=== PATIENT | female | born 1945 | race Caucasian/White ===

== ENCOUNTER 2016-12-26 17:05 | Inpatient (IN) ==
[2016-12-26] MEDS ORDERED: cefTRIAXone 1,000 MG in SODIUM CHLORIDE 0.9% 100 ML IV STA (17:26)
[2016-12-26] MEDS ORDERED: ONDANSETRON 4 MG/2 ML VIAL IV STA ×2 (17:26→18:43)
[2016-12-26] MEDS ORDERED: AZITHROMYCIN INJ 500 MG in SODIUM CHLORIDE 0.9% 250 ML IV STA (17:26)
[2016-12-26] MEDS ORDERED: methylPREDNISolone SOD SUC 125 MG/2 ML VIAL IV STA (17:26)
--- NOTE | 2016-12-26 17:30 | Emergency Department Note ---
Arrival - Arrival Chief Complaint: Shortness of Breath Stated Complaint: cant hardly breathe/aching/fever ED Nursing Triage Note: Pt c/o increased cough and SOB, fever, body aches, and chills since this am. Pt on home O2 at triage. Mode of Arrival: Ambulatory Limitations: No Limitations Source: Patient Time Seen by Provider: 12/26/16 17:26 - History of Present Illness HPI Narrative: This 71-year-old white female long-standing COPD patient on home oxygen presents with a history of several days of marked escalation in dyspnea on exertion and at rest with nighttime wheeze, increased cough, chest wall pain, and low-grade fever. She denies any significant purulence, sinus symptoms, or pedal edema. She has remained quite compliant with her medication and currently is medically stable other than her dyspnea. Onset (ago): day(s) (Patient presents with several days of progressive symptoms) Allergies/Adverse Reactions: Allergies Allergy/AdvReac Type Severity Reaction Status Date / Time No Known Allergies Allergy Verified 12/26/16 17:11 Home Medications: Home Medications Medication Instructions Recorded Confirmed Type Albuterol Inhaler [Proventil 2 puff INH Q4H PRN 12/26/16 12/26/16 History Inhaler] Albuterol/Ipratropium Neb [Duoneb] 3 ml RESP TX RT Q6H PRN 12/26/16 12/26/16 History Azithromycin Tab [Zithromax Tab] 250 mg PO MOWEFR 12/26/16 12/26/16 History dilTIAZem HCl [Cartia XT] 180 mg PO QAM 12/26/16 12/26/16 History Review of System - Review of System 12 point system: reviewed and no additional remarkable complaints except as stated - Review of System Constitutional: Present: as per HPI Respiratory: Present: as per HPI Cardiovascular: Present: as per HPI Medical,Surgical,& Family Hx - Medical History Cardio: History of: Hypertension Endocrine: History of: Diabetes Mellitus (NIDDM) Respiratory: History of: COPD - Social History Smoking Status: Never smoker Exam Physical Examination: GENERAL: Chronically ill fragile appearing white female. HEENT: Normocephalic. No trauma. Moist mucous membranes. EOMI. PERRLA. ENT NML NECK: Supple. No adenopathy. CARDIAC: Regular. No murmurs. Heart rate 83 CHEST: Scattered anterior expiratory wheeze. No respiratory distress. O2 sat 97%. Tender sternum and bilateral anterior axillary lines with palpation ABDOMEN: Soft. Nontender. Active bowel sounds. EXTREMITIES: No trauma. Normal ROM. No pedal edema. SKIN: No diaphoresis. No rash. NEURO: Alert. Neuro intact no focal deficits. Vital Signs: Vital Signs Temperature 98.7 F 12/26/16 17:33 Pulse Rate 83 12/26/16 17:33 Respiratory Rate 21 12/26/16 17:33 Blood Pressure 180/115 12/26/16 17:33 O2 Sat by Pulse Oximetry 99 12/26/16 17:30 Course - Reevaluation(s) Reevaluation #1: Discussed with patient the need for hospitalization given her elevated BNP, resting tachycardia, chronic hypoxia, and GI intolerance of bronchodilators. - Consultations Consultation #1: Discussed with hospitalist service admission for further evaluation and treatment Results - Labs CBC & BMP: 12/26/16 17:52 12/26/16 17:52 - Impressions EKG: Sinus rhythm at 96 with occasional PAC. Evidence of LVH with nonspecific ST changes. No acute injury pattern noted. - Diagnostic Findings Procedure: Chest x-ray: image reviewed by me, report reviewed by me (Stable appearance of COPD with chronic scarring and interval improvement of infiltrate noted previously.) Disposition Clinical Impression: O2 dependent COPD exacerbation, Congestive failure Case discussed with: patient, patient's family Disposition: Still a Patient Condition: Guarded Time of Disposition: 19:44
[2016-12-26] MEDS ORDERED: hydrALAZINE 20 MG/1 ML VIAL IV STA (17:31)
--- NOTE | 2016-12-26 17:47 | XRay Report ---
XR chest 1V portable Indication: Shortness of breath Comparison: Chest x-ray 03/11/2014 Technique: Portable AP chest was performed. Findings: Scarring and parenchymal distortion within the upper chest bilaterally has changed little since comparison study. Heart size is borderline to minimally enlarged. The lower lungs are clear. Bones and soft tissues appear stable. Impression: 1. Interval clearing of previously demonstrated reticular interstitial markings in the mid to lower chest may reflect improvement in infection or edema. Diffuse parenchymal scarring and distortion of the upper lung parenchyma remains present with little suggested change. 12/26/2016 5:44 PM PROCEDURE INTERPRETED AT [facility] DEPARTMENT OF RADIOLOGY Final Report Signed by: Dr. Rick Muñiz
[2016-12-26] MEDS ORDERED: hydrALAZINE 20 MG/1 ML VIAL ONE (17:51)
[2016-12-26] MEDS ORDERED: AZITHROMYCIN 500 MG VIAL IV ONE (17:51)
[2016-12-26] MEDS ORDERED: ONDANSETRON 4 MG/2 ML VIAL ONE ×2 (17:51→18:53)
[2016-12-26] MEDS ORDERED: methylPREDNISolone SOD SUC 125 MG/2 ML VIAL ONE (17:51)
[2016-12-26] MEDS ORDERED: cefTRIAXone 1,000 MG VIAL ONE (17:51)
[2016-12-26 18:08] LABS: Basophils % 0.3 % (0.0-0.8); Eosinophils # 0.4 10*3/uL (0.0-0.87); Eosinophils % 5.9 % (0.00-10.9); Hematocrit 36.1 VOL% (35.7-47.0); Hemoglobin 12.3 GM/DL (12.0-16.0); Immature Granulocytes % 0.3 %; Immature Granulocytes Absolute 0.02 #; Lymphocytes # 1.8 10*3/uL (1.4-4.0); Lymphocytes % 26.2 % (21.3-54.2); Mean Corpuscular HGB Conc 34.1 GM/DL (32-36); Mean Corpuscular Hemoglobin 31 PG (27-34); Mean Corpuscular Volume 90.3 FL (87-102); Mean Platelet Volume 10.8 FL (9.6-12.0); Monocytes # 0.8 10*3/uL (0.11-0.8); Monocytes % 11.1 % (1.7-12.7); Neutrophils # 3.9 10*3/uL (1.4-7.4); Neutrophils % 56.2 % (38.7-73.9); Platelet Count 226 T/CUMM (130-400); Red Cell Distribution Width 12.6 % (9.3-17.3)
[2016-12-26] MEDS: ALBUTEROL 2.5 MG/3 ML NEB RESP TX STA ×2 (18:10→19:05)
[2016-12-26 18:20] LABS: PT Patient Result 10.3 SECS; Partial Thromboplastin Time 32.1 SECS (0-40)
--- NOTE | 2016-12-26 18:20 | EKG Report ---
Stationary ECG Study [facility] ER Test Date: 12/26/2016 6:17:10 PM Pat Name: JAMES MIRANDA Department: Room: Gender: F Manufacturing Director: : 1945 Requested by: Steve Sheikh Order Number: [id number] Reading MD: LALITA APARICIO Intervals [place] Rate: 96 P: 78 IA: 130 QRS: 67 QRSD: 95 T: 68 QT: 346 QTc: 400 Interpretive Statements SINUS RHYTHM WITH OCCASIONAL SUPRAVENTRICULAR PREMATURE COMPLEXES MINIMAL VOLTAGE CRITERIA FOR LVH, CONSIDER NORMAL VARIANT Electronically Signed On 12-28-16 15:51:37 CDT by LALITA APARICIO [email or web address]
[2016-12-26 18:35] LABS: Alanine Aminotransferase 11 U/L (13-56); Albumin 3.6 G/DL (3.4-5.0); Alkaline Phosphatase 104 U/L (45-117); Aspartate Amino Transferase 16 U/L (0-37); Bilirubin,Total < 0.39 MG/DL (0.2-1.0); Blood Urea Nitrogen 25 MG/DL (7-18); Calcium 9.5 MG/DL (8.5-10.1); Glucose 97 MG/DL (74-106); Osmolality,Calculated 282.4 MOS/KG (273-304); Sodium 140 MMOL/L (136-145); Total Protein 7.8 G/DL (6.4-8.3); Troponin I Only < 0.015 NG/ML (0.00-0.045)
[2016-12-26 18:38] LABS: Apearance,Urine CLEAR (Clear); Bilirubin,Urine Negative (Negative); Blood, Urine Negative (Negative); Glucose,Urine (UA) Negative (Negative); Ketones,Urine Negative (Negative); Nitrite,Urine Negative (Negative); Protein,Urine Negative; RBC,Urine 10 /HPF (0-4); Squamous Epithelial Cell,Urine Occasional /HPF (0-10); Urine Color Straw (Yellow); Urine Urobilinogen < 2.0 EU/DL (0.2-1.0); WBC,Urine 1 /HPF (0-6)
[2016-12-26] MEDS ORDERED: METOCLOPRAMIDE 10 MG/2 ML VIAL IV STA (18:43)
[2016-12-26] MEDS ORDERED: ALBUTEROL 2.5 MG/3 ML NEB RESP TX STA (18:50)
[2016-12-26] MEDS: ALBUTEROL 2.5 MG/3 ML NEB RESP TX SCH ×2 (18:52→19:05)
[2016-12-26] MEDS ORDERED: METOCLOPRAMIDE 10 MG/2 ML VIAL ONE (18:53)
[2016-12-26] MEDS ORDERED: ALBUTEROL/IPRATROPIUM 3 ML NEB RESP TX PRN (20:00)
--- NOTE | 2016-12-26 20:11 | Hospitalist History & Physical ---
Assessment and Plan (1) Respiratory failure with hypoxia and hypercapnia Status: Acute Assessment and plan: The patient is admitted the hospital for treatment of worsening respiratory failure. The patient's illness is characterized as acute on chronic respiratory failure due to pulmonary fibrosis. The patient will be treated with IV antibiotic, moderate dose IV steroid, and beta agonist nebulized breathing therapy. We will obtain pulmonary consultation in the morning. I counseled the patient concerning CODE STATUS. The patient is her own decision maker and wishes to be full code. Current Visit: Yes (2) Pulmonary fibrosis Status: Acute Current Visit: Yes History of Present Illness Chief complaint: Shortness of breath and reduced exercise capacity History of present illness: Ms. Velazquez is a 71 year old female formally a patient of Dr. Cyndie Oglesby and last saw Dr. Beach one year ago. The patient was last hospitalized about 3 years ago and required recovery at [facility] after an episode of respiratory failure. Dr. Oglesby's record labeled her as pulmonary fibrosis at that time. The patient has been living with her son who cares for her each day. She has limited exercise capacity and walks about 25 feet at a time. The patient's son accompanies her and gives additional history. He states that she avoids eating because she coughs after eating. He states that the patient's previous exercise capacity has been limited to about 5 -10 feet in the last week. Patient and son deny fever, chills, dysuria, or hematemesis. The patient had prolonged nebulizer treatment at the time of treatment in the emergency room and that caused her to have a vomiting episode. The patient's symptoms are moderate to severe, continuous, and worsening. I screened the patient for tobacco use and found that she was a never smoker. I gave her 4 minutes tobacco avoidance education. Home Medications Medication Instructions Recorded Confirmed Type Albuterol Inhaler [Proventil 2 puff INH Q4H PRN 12/26/16 12/26/16 History Inhaler] Albuterol/Ipratropium Neb [Duoneb] 3 ml RESP TX RT Q6H PRN 12/26/16 12/26/16 History Azithromycin Tab [Zithromax Tab] 250 mg PO MOWEFR 12/26/16 12/26/16 History dilTIAZem HCl [Cartia XT] 180 mg PO QAM 12/26/16 12/26/16 History Allergies Allergy/AdvReac Type Severity Reaction Status Date / Time No Known Allergies Allergy Verified 12/26/16 17:11 Medical,Surgical,& Family Hx - Medical History Cardio: History of: Hypertension Endocrine: History of: Diabetes Mellitus (NIDDM) Respiratory: History of: COPD - Family History Family History: Reports;: Family Hypertension - Social History Smoking Status: Never smoker Marital Status: Lives With:: Children Functional capacity: uses cane/walker 12 point system: reviewed and no additional remarkable complaints except as stated Exam - Constitutional Vitals: Period Temp Pulse Resp BP Sys/Rose Pulse Ox Last 24 Hr 98.7 F-98.7 F 83-83 21-24 180-180/115-115 97-99 Exam: Constitutional System: Mild distress while laying very still. No tremulousness. The patient is malnourished with reduced muscle bulk Head: Normocephalic, atraumatic. Ears, Nose and Throat System: No evidence of Otitis or Mastoiditis. No epistaxis or discharge Eyes System: Pupils equal, round, and reactive. Extraocular muscles intact. Neck: Supple, without adenopathy, No jugular venous distention. No thyromegaly , neck mass, or prior surgery apparent. Respiratory System: Chest severe air trapping with reduced lung sounds right upper lobe to auscultation. Cardiovascular System: Heart with regular rate and rhythm and frequent ectopy. No murmur. GI System: Abdomen soft, nontender. Hypo-active bowel sounds present. Musculoskeletal System: limbs with no pedal edema. Full distal pulses. Neurological System: No discernable sensory deficit. No aphasia Psychiatric System: Conversation is rational Results - Labs CBC & BMP: 12/26/16 17:52 12/26/16 17:52 Lab Results: I have reviewed the past 24 hour labs
[2016-12-26] MEDS ORDERED: ONDANSETRON 4 MG/2 ML VIAL IV PRN (21:28)
[2016-12-26] MEDS ORDERED: ACETAMINOPHEN 325 MG TABLET PO PRN (21:28)
[2016-12-26] MEDS ORDERED: SODIUM CHLORIDE 0.9% 1,000 ML IV SCH (21:28)
[2016-12-26] MEDS ORDERED: ZALEPLON 5 MG CAPSULE PO PRN (21:28)
[2016-12-26] MEDS ORDERED: ENOXAPARIN 30 MG/0.3 ML SYRINGE SUBCUT SCH (21:28)
[2016-12-26] MEDS: CEFUROXIME INJ 750 MG in SODIUM CHLORIDE 0.9% 100 ML IV SCH (22:53)
[2016-12-27] MEDS: ALBUTEROL 0.63 MG/3 ML NEB RESP TX SCH ×2 (00:39→07:10)
[2016-12-27] MEDS: methylPREDNISolone SOD SUC 40 MG/1 ML VIAL IV SCH ×2 (01:50→09:04)
[2016-12-27 06:36] LABS: Basophils % 0.2 % (0.0-0.8); Hematocrit 34.4 VOL% (35.7-47.0); Hemoglobin 11.6 GM/DL (12.0-16.0); Immature Granulocytes % 0.4 %; Immature Granulocytes Absolute 0.02 #; Lymphocytes # 0.5 10*3/uL (1.4-4.0); Lymphocytes % 11.3 % (21.3-54.2); Mean Corpuscular HGB Conc 33.7 GM/DL (32-36); Mean Corpuscular Hemoglobin 31 PG (27-34); Mean Corpuscular Volume 90.5 FL (87-102); Monocytes # 0.1 10*3/uL (0.11-0.8); Neutrophils # 4.2 10*3/uL (1.4-7.4); Neutrophils % 87.1 % (38.7-73.9); Platelet Count 220 T/CUMM (130-400); Red Cell Distribution Width 12.7 % (9.3-17.3); White Blood Count 4.8 T/CUMM (4-12)
[2016-12-27 06:58] LABS: Osmolality,Calculated 287.1 MOS/KG (273-304); Potassium 4.4 MMOL/L (3.5-5.1)
[2016-12-27] MEDS: CEFUROXIME INJ 750 MG in SODIUM CHLORIDE 0.9% 100 ML IV SCH (07:15)
[2016-12-27 08:01] LABS: Band Neutrophils 1 % (0-10); Lymphocytes 11 % (20-55); Platelet Estimate Normal; Segmented Neutrophils 88 % (50-85); Total Cells Counted 100
[2016-12-27] MEDS ORDERED: PANTOPRAZOLE 40 MG TABLET PO SCH (09:00)
[2016-12-27] MEDS ORDERED: DILTIAZEM CD 180 MG CAPSULE PO SCH (09:00)
--- NOTE | 2016-12-27 11:04 | Discharge Summary ---
Hospital Course - Hospital Course Hospital Course: Discharge diagnosis: 1. Pulmonary fibrosis 2. Chronic respiratory failure on home oxygen. The patient presented to the hospital for evaluation of dyspnea. She says that she feels better following some adjustment of her bronchodilators. She is on oxygen at home at 2 L/min. She says that she is back to baseline. She has been up and about in the room, and is able to get to the bathroom without any assistance. She has requested discharge home. Medication reconciliation has been performed. Regular diet. Activity as tolerated. Follow-up with local physician. Discharge Plan - Discharge Data Disposition: Disch To Home/Self Care Condition at Discharge: Stable Discharge Diet: advance to your usual diet Activity: resume usual activities as tolerated Hygiene: no restrictions Weight Bearing at Discharge: full weight bearing - Discharge Medications Continue dilTIAZem HCl [Cartia XT] 180 mg PO QAM Azithromycin Tab [Zithromax Tab] 250 mg PO MOWEFR Albuterol/Ipratropium Neb [Duoneb] 3 ml RESP TX RT Q6H PRN PRN Reason: Shortness Of Breath/Wheezing Albuterol Inhaler [Proventil Inhaler] 2 puff INH Q4H PRN PRN Reason: Shortness Of Breath/Wheezing - Follow Up or Referral - Forms/Instructions Exam - Constitutional Vitals: Period Temp Pulse Resp BP Sys/Rose Pulse Ox Last 24 Hr 97.1 F-98.7 F 65-103 16-24 122-180/65-115 95-100 Vital signs are noted above. Heart is regular with distant tones. She has a few rales in the chest, and some decreased breath sounds in the right hemithorax. I suspect this is her baseline. She does not have any edema. Discharge Results Procedures and tests throughout hospitalization: Pending Orders 12/26/16 18:23 Blood Culture Stat Labs on day of discharge: Labs from last 24 hours 12/27/16 12/27/16 12/26/16 05:33 05:33 18:11 WBC 4.8 D RBC 3.80 Hgb 11.6 L Hct 34.4 L MCV 90.5 MCH 31 MCHC 33.7 RDW 12.7 Plt Count 220 MPV 11.0 Neut % (Auto) 87.1 H Lymph % (Auto) 11.3 L [place] % (Auto) 1.0 L Eos % (Auto) 0.0 Baso % (Auto) 0.2 Neut # (Auto) 4.2 Lymph # (Auto) 0.5 L [place] # (Auto) 0.1 L Eos # (Auto) 0.0 Baso # (Auto) 0.0 Total Counted 100 Immature Gran % 0.4 Nucleated RBC % 0.0 Immature Gran # 0.02 Segmented Neutrophils 88 H Band Neutrophils 1 Lymphocytes 11 L Nucleated RBCs # 0.00 Platelet Estimate Normal Immature Plt Fraction 0.0 INR PT Patient/Control Mix Circ Anticoag PTT Sodium 142 Potassium 4.4 Chloride 108 H Carbon Dioxide 28 Anion Gap 10.4 BUN 22 H Creatinine 1.40 H GFR Calculation 29 BUN/Creatinine Ratio 15.00 Glucose 141 H Calculated Osmolality 287.1 Calcium 9.0 Total Bilirubin AST ALT Alkaline Phosphatase Total Creatine Kinase CK-MB (CK-2) Troponin I B-Natriuretic Peptide Total Protein Albumin Globulin Albumin/Globulin Ratio Urine Color Straw Urine Appearance Clear Urine pH 6.0 Ur Specific [place] 1.010 Urine Protein Negative Urine Glucose (UA) Negative Urine Ketones Negative Urine Blood Negative Urine Nitrate Negative Urine Bilirubin Negative Urine Urobilinogen < 2.0 H Urine Leukocytes Negative Urine RBC 10 Urine WBC 1 Ur Squamous Epith Cells Occasional Ur Culture Indicated? Not indicated 12/26/16 12/26/16 12/26/16 17:52 17:52 17:52 WBC RBC Hgb Hct MCV MCH MCHC RDW Plt Count MPV Neut % (Auto) Lymph % (Auto) [place] % (Auto) Eos % (Auto) Baso % (Auto) Neut # (Auto) Lymph # (Auto) [place] # (Auto) Eos # (Auto) Baso # (Auto) Total Counted Immature Gran % Nucleated RBC % Immature Gran # Segmented Neutrophils Band Neutrophils Lymphocytes Nucleated RBCs # Platelet Estimate Immature Plt Fraction INR 1.0 PT Patient/Control Mix 10.3 Circ Anticoag PTT 32.1 Sodium 140 Potassium 4.0 Chloride 105 Carbon Dioxide 27 Anion Gap 12.0 BUN 25 H Creatinine 1.50 H GFR Calculation 26 BUN/Creatinine Ratio 16.00 Glucose 97 Calculated Osmolality 282.4 Calcium 9.5 Total Bilirubin < 0.39 AST 16 ALT 11 L Alkaline Phosphatase 104 Total Creatine Kinase 66 CK-MB (CK-2) < 1.0 Troponin I < 0.015 B-Natriuretic Peptide 150 H Total Protein 7.8 Albumin 3.6 Globulin 4.2 H Albumin/Globulin Ratio 0.8 L Urine Color Urine Appearance Urine pH Ur Specific [place] Urine Protein Urine Glucose (UA) Urine Ketones Urine Blood Urine Nitrate Urine Bilirubin Urine Urobilinogen Urine Leukocytes Urine RBC Urine WBC Ur Squamous Epith Cells Ur Culture Indicated? 12/26/16 17:52 WBC 7.0 RBC 4.00 Hgb 12.3 Hct 36.1 MCV 90.3 MCH 31 MCHC 34.1 RDW 12.6 Plt Count 226 MPV 10.8 Neut % (Auto) 56.2 Lymph % (Auto) 26.2 [place] % (Auto) 11.1 Eos % (Auto) 5.9 Baso % (Auto) 0.3 Neut # (Auto) 3.9 Lymph # (Auto) 1.8 [place] # (Auto) 0.8 Eos # (Auto) 0.4 Baso # (Auto) 0.0 Total Counted Immature Gran % 0.3 Nucleated RBC % 0.0 Immature Gran # 0.02 Segmented Neutrophils Band Neutrophils Lymphocytes Nucleated RBCs # 0.00 Platelet Estimate Immature Plt Fraction 0.0 INR PT Patient/Control Mix Circ Anticoag PTT Sodium Potassium Chloride Carbon Dioxide Anion Gap BUN Creatinine GFR Calculation BUN/Creatinine Ratio Glucose Calculated Osmolality Calcium Total Bilirubin AST ALT Alkaline Phosphatase Total Creatine Kinase CK-MB (CK-2) Troponin I B-Natriuretic Peptide Total Protein Albumin Globulin Albumin/Globulin Ratio Urine Color Urine Appearance Urine pH Ur Specific [place] Urine Protein Urine Glucose (UA) Urine Ketones Urine Blood Urine Nitrate Urine Bilirubin Urine Urobilinogen Urine Leukocytes Urine RBC Urine WBC Ur Squamous Epith Cells Ur Culture Indicated? DS: Provider Date of admission: 12/26/16 19:41 Primary care physician: . No PCP Attending physician on admission: Carlos Zazueta Consults: 12/26/16 21:28 Consult to Physician [CONS] Routine Comment: pulmonary fibrosis, dyspnea Consulting Provider: Eduardo Fang Discharging clinician: Holden Ferris MD Expected date of discharge: 12/27/16
[2016-12-27 11:45] VITALS: BP 137/87
--- NOTE | 2016-12-29 10:23 | Physician Query Form ---
CLICK EDIT DOCUMENT TO SELECT QUERY ANSWER --> OK --> SIGN Marnie Anna RN Clinical Policy Value Calculator W) [phone] (f) [phone] [email or web address] PROVIDERS: Make your selection(s) from the choices in EACH section by typing an "x" and enter comments in the comment section. Please use your independent medical judgment in providing your response. This request does not imply that any particular answer is desired or expected. CLINICAL INDICATORS: (Providers should not edit this section) Based on documentation of History of COPD. "COPD Exacerbation" "O2 dependent" "Acute Respiratory Failure with Hypoxia and Hypercapnia" "Acute Pulmonary Fibrosis" O2@2L NC applied. IV Solu Medrol given Based on the above, could you clarify the appropriate diagnosis, if significant , that supports the above abnormalities and additional evaluation, monitoring, and/or treatment rendered: ( ) Acute COPD with Exacerbation (X ) Chronic COPD with Acute Exacerbation ( ) Other, please specify: ( ) Clinically unable to determine COMMENTS: PLEASE ALSO DOCUMENT RESPONSE IN PROGRESS NOTES AND/OR DISCHARGE SUMMARY Use of terms such as suspected, likely, or probable (associated with a specific diagnosis that is being evaluated, monitored, or treated as if it exists) are acceptable and can be restated in the discharge summary if not ruled out. MTDD
--- NOTE | 2017-01-01 09:06 | Physician Query Form ---
CLICK EDIT DOCUMENT TO SELECT QUERY ANSWER --> OK --> SIGN Madalyn Collazo RN, CCDS Certified Clinical Restaurant Culinary Manager W) [phone] (f) [phone] [email or web address] PROVIDERS: Make your selection(s) from the choices in EACH section by typing an "x" and enter comments in the comment section. Please use your independent medical judgment in providing your response. This request does not imply that any particular answer is desired or expected. CLINICAL INDICATORS: (Providers should not edit this section) Height: 5' 3" Weight: 82 lbs BMI: 14.6 Gas Operator notes: Loss of muscle mass, avoids eating due to coughing per son, loss of subcutaneous fat, progressive weight loss (89 lbs since 2013) Promote weight gain, [facility] Boost with all meals to provide 1590 kcals and 66g protein Physician notes: "fragile appearing", "malnourished with reduced muscle bulk" Based on the above, which following choice most accurately represents the patient's documented malnourished status? (x ) Malnutrition is ( ) mild ( ) moderate ( x) severe (x ) Protein calorie malnutrition ( ) mild (x ) moderate ( ) severe ( ) Emaciation due to malnutrition ( ) Other, please specify: ( ) Clinically unable to determine Mild Malnutrition (BMI < 18.5, % Normal Body Weight 85-95%) Moderate Malnutrition (BMI < 17, % Normal Body Weight 75-85%) Severe Malnutrition (BMI < 16, % Normal Body Weight < 75%) Source: Jenny COMMENTS: PLEASE ALSO DOCUMENT RESPONSE IN PROGRESS NOTES AND/OR DISCHARGE SUMMARY Use of terms such as suspected, likely, or probable (associated with a specific diagnosis that is being evaluated, monitored, or treated as if it exists) are acceptable and can be restated in the discharge summary if not ruled out. MTDD
== END 2016-12-27 11:49 | disposition home or self-care (01) | DRG 189 ==
LOC: N.ED 17:05 → N.5E 19:41 → SUATTDRO 19:41 → N.5E 21:15
PROVIDERS: ADMIT Hospitalist; ATTEND Internal Medicine Geriatric Medicine

== ENCOUNTER 2020-04-05 10:20 | Inpatient (IN) ==
[2020-04-05] MEDS ORDERED: SODIUM CHLORIDE 0.9% 500 ML IV STA (11:03)
[2020-04-05] MEDS ORDERED: ALBUTEROL 2.5 MG/3 ML NEB RESP TX STA (11:04)
[2020-04-05 11:19] LABS: Basophils % 0.2 % (0.0-0.8); Eosinophils % 0.2 % (0.00-10.9); Hematocrit 34.3 VOL% (35.7-47.0); Immature Granulocytes % 1.2 %; Immature Granulocytes Absolute 0.23 #; Lymphocytes # 0.7 10*3/uL (1.4-4.0); Lymphocytes % 3.4 % (21.3-54.2); Mean Corpuscular HGB Conc 32.1 GM/DL (32-36); Mean Corpuscular Volume 94.8 FL (87-102); Mean Platelet Volume 9.4 FL (9.6-12.0); Monocytes % 4.3 % (1.7-12.7); Neutrophils % 90.7 % (38.7-73.9); Platelet Count 291 T/CUMM (130-400); Red Blood Count 3.62 MC/CUMM (3.8-5.5); Red Cell Distribution Width 15.1 % (9.3-17.3); White Blood Count 19.2 T/CUMM (4-12)
[2020-04-05 11:34] LABS: Partial Thromboplastin Time 28.8 SECS (23.9-33.8)
[2020-04-05 11:38] LABS: Band Neutrophils 1 % (0-10); Hypochromasia 1+; Lymphocytes 4 % (20-55); Segmented Neutrophils 93 % (50-85); Total Cells Counted 100
[2020-04-05 11:39] LABS: Microcytosis Slight; Platelet Estimate Normal
[2020-04-05 11:44] LABS: Albumin 2.8 G/DL (3.4-5.0); Bilirubin,Total 0.5 MG/DL (0.2-1.0); Calcium 8.6 MG/DL (8.5-10.1); Osmolality,Calculated 281.5 MOS/KG (273-304); Total Protein 6.5 G/DL (6.4-8.3)
[2020-04-05] MEDS ORDERED: methylPREDNISolone SOD SUC 125 MG/2 ML VIAL IV STA (12:51)
[2020-04-05] MEDS ORDERED: PIPERACILLIN/TAZOBACTAM 3,375 MG in SODIUM CHLORIDE 0.9% 100 ML IV STA (12:51)
[2020-04-05] MEDS ORDERED: MORPHINE 4 MG/1 ML VIAL IV PRN (16:07)
[2020-04-05] MEDS ORDERED: PROMETHAZINE 25 MG TABLET PO PRN (16:07)
[2020-04-05] MEDS ORDERED: DEXTROSE 50% 25 GM/50 ML VIAL IV PRN (16:07)
[2020-04-05] MEDS ORDERED: DOCUSATE SODIUM 100 MG CAPSULE PO PRN (16:07)
[2020-04-05] MEDS ORDERED: LACTULOSE 20 GM/30 ML UDCUP PO PRN (16:07)
[2020-04-05] MEDS ORDERED: GLUCAGON 1 MG VIAL IM PRN (16:07)
[2020-04-05] MEDS ORDERED: ONDANSETRON 4 MG/2 ML VIAL IV PRN (16:07)
[2020-04-05] MEDS ORDERED: ACETAMINOPHEN 325 MG TABLET PO PRN (16:07)
[2020-04-05] MEDS ORDERED: INFLUENZA VIRUS VACCINE 0.5 ML SYRINGE IM ONE (16:48)
[2020-04-05] MEDS: SODIUM CHLORIDE 0.9% 1,000 ML IV SCH (17:05)
[2020-04-05] MEDS: ALBUTEROL/IPRATROPIUM 3 ML NEB RESP TX SCH (19:30)
[2020-04-05] MEDS ORDERED: ENOXAPARIN 30 MG/0.3 ML SYRINGE SUBCUT SCH (21:00)
[2020-04-05] MEDS: methylPREDNISolone SOD SUC 40 MG/1 ML VIAL IV SCH (21:05)
[2020-04-05] MEDS: PIPERACILLIN/TAZOBACTAM 3,375 MG in SODIUM CHLORIDE 0.9% 100 ML IV SCH (23:09)
[2020-04-06] MEDS: ALBUTEROL/IPRATROPIUM 3 ML NEB RESP TX SCH ×4 (02:06→20:08)
[2020-04-06] MEDS: SODIUM CHLORIDE 0.9% 1,000 ML IV SCH ×4 (04:44→21:10)
[2020-04-06] MEDS: methylPREDNISolone SOD SUC 40 MG/1 ML VIAL IV SCH ×3 (05:37→21:09)
[2020-04-06] MEDS: PIPERACILLIN/TAZOBACTAM 3,375 MG in SODIUM CHLORIDE 0.9% 100 ML IV SCH ×2 (05:37→16:26)
[2020-04-06 06:24] LABS: Basophils % 0.1 % (0.0-0.8); Hematocrit 30.7 VOL% (35.7-47.0); Hemoglobin 9.6 GM/DL (12.0-16.0); Immature Granulocytes % 1.2 %; Immature Granulocytes Absolute 0.13 #; Lymphocytes # 0.4 10*3/uL (1.4-4.0); Mean Corpuscular HGB Conc 31.3 GM/DL (32-36); Mean Corpuscular Volume 96.5 FL (87-102); Mean Platelet Volume 9.6 FL (9.6-12.0); Monocytes % 0.5 % (1.7-12.7); Neutrophils % 94.2 % (38.7-73.9); Platelet Count 266 T/CUMM (130-400); Red Blood Count 3.18 MC/CUMM (3.8-5.5); Red Cell Distribution Width 15.3 % (9.3-17.3); White Blood Count 10.5 T/CUMM (4-12)
[2020-04-06 06:52] LABS: Hypochromasia 1+; Lymphocytes 2 % (20-55); Microcytosis 1+; Ovalocytes Slight; Platelet Estimate Adequate; Segmented Neutrophils 96 % (50-85); Total Cells Counted 100
[2020-04-06 07:18] LABS: Alanine Aminotransferase 16 U/L (13-56); Albumin 2.5 G/DL (3.4-5.0); Alkaline Phosphatase 83 U/L (45-117); Aspartate Amino Transferase 19 U/L (0-37); Bilirubin,Total < 0.39 MG/DL (0.2-1.0); Blood Urea Nitrogen 31 MG/DL (7-18); Estimated Glom Filtration Rate 25 ML/MIN; Glucose 135 MG/DL (74-106); Osmolality,Calculated 296.7 MOS/KG (273-304); Thyroid Stimulating Hormone 0.167 uIU/ml (0.358-3.74); Total Protein 6.2 G/DL (6.4-8.3)
[2020-04-06] MEDS ORDERED: AZITHROMYCIN 250 MG TABLET PO SCH (09:00)
[2020-04-07] MEDS: PIPERACILLIN/TAZOBACTAM 3,375 MG in SODIUM CHLORIDE 0.9% 100 ML IV SCH ×3 (00:45→16:05)
[2020-04-07] MEDS: ALBUTEROL/IPRATROPIUM 3 ML NEB RESP TX SCH ×4 (01:27→19:41)
[2020-04-07] MEDS: methylPREDNISolone SOD SUC 40 MG/1 ML VIAL IV SCH ×3 (04:40→20:53)
[2020-04-07 06:06] LABS: Albumin 2.6 G/DL (3.4-5.0); Bilirubin,Total 0.4 MG/DL (0.2-1.0); Calcium 8.5 MG/DL (8.5-10.1); Osmolality,Calculated 295.8 MOS/KG (273-304); Total Protein 6.2 G/DL (6.4-8.3)
[2020-04-07 06:08] LABS: Basophils % 0.1 % (0.0-0.8); Hematocrit 30.9 VOL% (35.7-47.0); Hemoglobin 9.9 GM/DL (12.0-16.0); Immature Granulocytes % 0.8 %; Immature Granulocytes Absolute 0.15 #; Lymphocytes # 0.5 10*3/uL (1.4-4.0); Lymphocytes % 2.6 % (21.3-54.2); Mean Corpuscular Volume 96.6 FL (87-102); Mean Platelet Volume 9.9 FL (9.6-12.0); Monocytes % 1.4 % (1.7-12.7); Neutrophils % 95.1 % (38.7-73.9); Platelet Count 292 T/CUMM (130-400); Red Cell Distribution Width 15.6 % (9.3-17.3); White Blood Count 18.3 T/CUMM (4-12)
[2020-04-07 07:33] LABS: Lymphocytes 1 % (20-55); Segmented Neutrophils 96 % (50-85); Total Cells Counted 100
[2020-04-07 07:35] LABS: Atypical Lymphocytes Few; Ovalocytes Few; Polychromasia Slight; Schistocytes Few
[2020-04-07 07:36] LABS: Platelet Estimate Normal; Target Cells Few; Tear Drop Cells Slight
[2020-04-07] MEDS: guaiFENesin/DM ER 600-30 MG TABLET PO PRN ×2 (08:47→20:54)
[2020-04-07] MEDS: SODIUM CHLORIDE 0.9% 1,000 ML IV SCH ×2 (15:34→16:07)
[2020-04-08] MEDS: PIPERACILLIN/TAZOBACTAM 3,375 MG in SODIUM CHLORIDE 0.9% 100 ML IV SCH ×3 (00:10→17:51)
[2020-04-08] MEDS: SODIUM CHLORIDE 0.9% 1,000 ML IV SCH ×2 (00:51→09:24)
[2020-04-08] MEDS: ALBUTEROL/IPRATROPIUM 3 ML NEB RESP TX SCH ×4 (01:01→19:28)
[2020-04-08] MEDS: methylPREDNISolone SOD SUC 40 MG/1 ML VIAL IV SCH ×3 (04:19→21:39)
[2020-04-08 05:06] LABS: Basophils % 0.1 % (0.0-0.8); Hematocrit 28.8 VOL% (35.7-47.0); Immature Granulocytes % 1.7 %; Immature Granulocytes Absolute 0.25 #; Lymphocytes # 0.4 10*3/uL (1.4-4.0); Lymphocytes % 2.4 % (21.3-54.2); Mean Corpuscular HGB Conc 31.3 GM/DL (32-36); Mean Corpuscular Volume 97.3 FL (87-102); Mean Platelet Volume 9.8 FL (9.6-12.0); Monocytes % 1.7 % (1.7-12.7); Neutrophils % 94.1 % (38.7-73.9); Platelet Count 245 T/CUMM (130-400); Red Blood Count 2.96 MC/CUMM (3.8-5.5); Red Cell Distribution Width 15.8 % (9.3-17.3); White Blood Count 14.5 T/CUMM (4-12)
[2020-04-08 05:29] LABS: Alanine Aminotransferase 18 U/L (13-56); Albumin 2.2 G/DL (3.4-5.0); Alkaline Phosphatase 78 U/L (45-117); Aspartate Amino Transferase 20 U/L (0-37); Bilirubin,Total < 0.39 MG/DL (0.2-1.0); Blood Urea Nitrogen 39 MG/DL (7-18); Calcium 8.1 MG/DL (8.5-10.1); Estimated Glom Filtration Rate 23 ML/MIN; Glucose 113 MG/DL (74-106); Osmolality,Calculated 299.6 MOS/KG (273-304); Total Protein 5.5 G/DL (6.4-8.3)
[2020-04-08 05:59] LABS: Lymphocytes 4 % (20-55); Platelet Estimate Normal; Segmented Neutrophils 93 % (50-85); Total Cells Counted 100
[2020-04-08 06:00] LABS: Ovalocytes Few; Polychromasia Slight
[2020-04-08] MEDS ORDERED: MORPHINE 4 MG/1 ML VIAL IV ONE (13:47)
[2020-04-08 14:19] LABS: Basophils % 0.1 % (0.0-0.8); Hematocrit 30.5 VOL% (35.7-47.0); Hemoglobin 9.7 GM/DL (12.0-16.0); Immature Granulocytes % 2.3 %; Immature Granulocytes Absolute 0.48 #; Lymphocytes # 0.6 10*3/uL (1.4-4.0); Mean Corpuscular HGB Conc 31.8 GM/DL (32-36); Mean Corpuscular Volume 96.8 FL (87-102); Mean Platelet Volume 9.8 FL (9.6-12.0); Monocytes % 3.8 % (1.7-12.7); NRBC # 0.02 10*3/uL; Neutrophils % 90.8 % (38.7-73.9); Platelet Count 363 T/CUMM (130-400); Red Blood Count 3.15 MC/CUMM (3.8-5.5); Red Cell Distribution Width 15.9 % (9.3-17.3); White Blood Count 20.9 T/CUMM (4-12)
[2020-04-08 14:46] LABS: PT Patient Result 10.9 SECS (9.8-11.9); Partial Thromboplastin Time 22.2 SECS (23.9-33.8)
[2020-04-08] MEDS ORDERED: ALBUTEROL/IPRATROPIUM 3 ML NEB RESP TX PRN (15:45)
[2020-04-08] MEDS: MORPHINE 4 MG/1 ML VIAL IV PRN ×2 (15:46→21:57)
[2020-04-08] MEDS: hydrALAZINE 20 MG/1 ML VIAL IV PRN (15:52)
[2020-04-08] MEDS ORDERED: MORPHINE 4 MG/1 ML VIAL IV PRN (15:52)
[2020-04-08] MEDS: METOPROLOL TARTRATE 50 MG TABLET PO SCH ×2 (16:18→21:39)
[2020-04-08] MEDS: AZITHROMYCIN INJ 500 MG in SODIUM CHLORIDE 0.9% 250 ML IV SCH (16:18)
[2020-04-08 17:23] LABS: Hypochromasia 1+; Lymphocytes 3 % (20-55); Macrocytosis 1+; Myelocytes 1 %; Segmented Neutrophils 94 % (50-85); Total Cells Counted 100
[2020-04-08 17:24] LABS: Hypersegmented Neutrophil 3+; Platelet Estimate Increased; Polychromasia Slight
[2020-04-08] MEDS: BENZONATATE 100 MG CAPSULE PO SCH (21:39)
[2020-04-09] MEDS: PIPERACILLIN/TAZOBACTAM 3,375 MG in SODIUM CHLORIDE 0.9% 100 ML IV SCH ×3 (02:11→18:04)
[2020-04-09] MEDS: MORPHINE 4 MG/1 ML VIAL IV PRN (02:11)
[2020-04-09] MEDS: ALBUTEROL/IPRATROPIUM 3 ML NEB RESP TX SCH ×4 (02:19→21:04)
[2020-04-09] MEDS ORDERED: hydrALAZINE 20 MG/1 ML VIAL ONE (02:47)
[2020-04-09] MEDS: hydrALAZINE 20 MG/1 ML VIAL IV PRN (02:54)
[2020-04-09] MEDS: methylPREDNISolone SOD SUC 40 MG/1 ML VIAL IV SCH ×3 (04:49→22:14)
[2020-04-09] MEDS: METOPROLOL TARTRATE 50 MG TABLET PO SCH ×2 (08:06→22:14)
[2020-04-09] MEDS: BENZONATATE 100 MG CAPSULE PO SCH ×3 (08:06→22:14)
[2020-04-09] MEDS ORDERED: PANTOPRAZOLE 40 MG VIAL IV SCH (09:00)
[2020-04-09] MEDS: LACTATED RINGERS 1,000 ML IV SCH ×2 (09:09→18:58)
[2020-04-09] MEDS ORDERED: MORPHINE 10 MG/5 ML UDCUP PO PRN (10:50)
[2020-04-09] MEDS: AZITHROMYCIN INJ 500 MG in SODIUM CHLORIDE 0.9% 250 ML IV SCH (15:48)
[2020-04-09] MEDS ORDERED: MIRTAZAPINE 15 MG TABLET PO SCH (21:00)
[2020-04-10] MEDS: ALBUTEROL/IPRATROPIUM 3 ML NEB RESP TX SCH (01:30)
[2020-04-10] MEDS: PIPERACILLIN/TAZOBACTAM 3,375 MG in SODIUM CHLORIDE 0.9% 100 ML IV SCH (01:36)
[2020-04-10 03:15] VITALS: BP 145/68
== END 2020-04-10 01:14 | disposition expired | DRG 190 ==
LOC: N.ED 10:20 → N.EDINP 14:23 → SUATTDRO 14:23 → N.5E 16:20 → N.ICU 04-08 14:06 → N.TELES 04-09 20:13
PROVIDERS: ADMIT Internal Medicine; ATTEND Internal Medicine